=== PATIENT | male | born 1970 | race Caucasian/White ===

== ENCOUNTER 2019-08-28 21:47 | Emergency (ER) | payer OTHER ==
[~2019-08-28] VITALS: Ht 167.6 cm; Wt 81.7 kg
[2019-08-28] MEDS ORDERED: MELOXICAM15 MG PO (23:30)
[2019-08-28] MEDS ORDERED: ULTRAM 50MG TAB50 MG PO (23:30)
[2019-08-28 23:42] VITALS: BP 186/101
== END 2019-08-28 23:43 | disposition home or self-care (01) ==
LOC: M.ERS 21:47
DX: M17.12 Unilateral primary osteoarthritis, left knee (principal); F17.210 Nicotine dependence, cigarettes, uncomplicated; Z88.6 Allergy status to analgesic agent; Z86.19 Personal history of other infectious and parasitic diseases

== ENCOUNTER 2020-05-08 19:55 | Emergency (ER) | payer OTHER ==
[~2020-05-08] VITALS: Ht 167.6 cm; Wt 104.3 kg
[~2020-05-08 19:55] MED LIST: MELOXICAM15 MG PO; ULTRAM 50MG TAB50 MG PO
[2020-05-08] MEDS ORDERED: PEROXIDE SORE236 ML SWISH&SPIT (20:35)
[2020-05-08] MEDS ORDERED: CLEOCIN HCL300 MG PO (20:35)
[2020-05-08] MEDS ORDERED: TYLENOL WITH CO1 TA1 PO (20:35)
[2020-05-08 20:45] VITALS: BP 159/93
== END 2020-05-08 20:46 | disposition home or self-care (01) ==
LOC: M.ERS 19:55
DX: K02.9 Dental caries, unspecified (principal); K04.7 Periapical abscess without sinus; F17.210 Nicotine dependence, cigarettes, uncomplicated; Z88.6 Allergy status to analgesic agent; Z79.899 Other long term (current) drug therapy; Z86.19 Personal history of other infectious and parasitic diseases